=== PATIENT | male | born 1975 | race Caucasian/White ===

== ENCOUNTER 2018-09-20 22:39 | Emergency (ER) | payer BC ==
[2018-09-21] MEDS ORDERED: Tetan/Diph/Pertus SYR(Tdap)* 0.5 ML SYR(BOOSTRIX) use SYR IM ONE (00:31)
[2018-09-21] MEDS ORDERED: Ibuprofen TAB* 600 MG PO ONE (00:31)
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
[2018-09-21 01:30] VITALS: BP 125/79
== END 2018-09-21 01:28 | disposition home or self-care (01) ==
LOC: ED 22:39
DX: S62.316A Displaced fracture of base of fifth metacarpal bone, right hand, initial encounter for closed fracture (principal); S00.31XA Abrasion of nose, initial encounter; S09.93XA Unspecified injury of face, initial encounter; V19.9XXA Pedal cyclist (driver) (passenger) injured in unspecified traffic accident, initial encounter; Z23 Encounter for immunization
CPT/HCPCS: 90471; 90715; 99282; A9270-GY

== ENCOUNTER → 2018-09-28 10:28 | Day surgery (SDC) | payer BC ==
[~2018-09-28 10:28] MED LIST: Buffered Lidocaine 1% SYRIN* 1 ML/SYRINGE INTRADERM ONE; Bupivacaine 0.25% SDV PF* 10 ML VIAL INJ ONE; Dexamethasone IV* 4 MG/ML 1 ML (4 MG) IV SLOW PU ONE; Dexamethasone IV* 4 MG/ML 1 ML (4 MG) ONE; DiMENhydriNATE IV* 50 MG/ML VIAL IV PUSH PRN; Famotidine IV* 10 MG/ML 2 ML (20 mg) IV ONE; Famotidine IV* 10 MG/ML 2 ML (20 mg) ONE; HYDROcodone/ACETAMIN 5-325 MG* 1 TAB PO PRN; Ketorolac INJ* 30 MG/ML 1 ML VIAL IV PRN; Ketorolac INJ* 30 MG/ML 1 ML VIAL ONE; Lactated Ringers 1000 ML Bag* 1,000 ML IV SCH; Lidocaine 2% PF * 5 ML VIAL ONE; Midazolam* 1 MG/ML 5 ML VIAL (5 MG) ONE; Naloxone* 0.4 MG/ML 1 ML VIAL IV PRN; Ondansetron INJ* 2 MG/ML VIAL ONE; Propofol* 10 MG/ML 20 ML BTL ONE; ceFAZolin 2 GM in NS PREMIX(*) 2 GM/100 ML BAG IVPB ONE; fentaNYL* 50 MCG/ML 2 ML VIAL (100 MCG VIAL) IV PRN; fentaNYL* 50 MCG/ML 2 ML VIAL (100 MCG VIAL) ONE; oxyCODONE/Acetamin 5/325 MG* TAB ONE
[2018-09-28] MEDS: oxyCODONE/Acetamin 5/325 MG* TAB PO PRN ×2 (15:47→16:06)
[2018-09-28 16:18] VITALS: BP 123/84
--- NOTE | 2018-09-28 17:01 | PN ---
Progress Note - Progress Note Date of Service: 09/28/18 - Anesthesia Note Note: At the end of the general anesthetic it was noted that there was foreign material noted in the bottom of a 2% Lidocaine PF vial Lot number [id number] Exp date 02/11. The medication in the vial was clear at the time of mixing with propofol for induction of anesthesia and remained clear. Approximately 2ml was mixed with propofol. The material appeared adherent to the inside of the vial or within the glass itself. The material of note was not noticed at the time of mixing of medications. The incident was discussed with Anna Leon of risk management, Dr. Pink, Caterina Wesley, Dr. Avila, Nicole Stanley, Dr. Combs. Attempts to reach Herve Melendez but he was not in the hosptial. Cultures of the vial were taken. There were photos taken of the vial and the vial was being delivered to pharmacy for further evaluation. Attempts to scrape the material from the vial appeared unsuccessful although an indentation was noted in the vial where the material was noted. The patient was awake and alert in the PACU. His vital signs were stable and he was afebrile. T=36.4, 123/84, P=80, R=16.There were not symptoms concerning for infections. A detailed discussion with the patient and mother about the events was done when the patient was fully awake in PACU. It was felt after discussions that the patient would be able to be discharged home if he appeared stable. The symptoms and signs of concern for infection including fever, sweating, chills, rigors, fast heart rate, lightheadedness or any other concerns, he was to proceed directly to ED for evaluation and treatment. All questions were answered and follow up with patient would occur. Mehnaz Larios M.D.
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
--- NOTE | 2018-09-29 16:32 | PN ---
Progress Note - Progress Note Date of Service: 09/29/18 - Anesthesia Note Note: Attempted to contact patient as a follow up but no answer on listed phone number. Message was left on voicemail. Mehnaz Larios M.D.
--- NOTE | 2018-10-02 13:30 | PN ---
Progress Note - Progress Note Date of Service: 10/02/18 - Anesthesia Note Note: I spoke with Mr. Thompson concerning the results of microbiology which was no growth per Herve Melendez. He is feeling well with no concerns at this time. He had no questions. I told him i would followup with him once the vial has been evaluated by the manufacture and a report is received. Mehnaz Larios M.D. .
== END | disposition home or self-care (01) ==
LOC: OR 10:28
PROVIDERS: ATTEND Orthopaedic Surgery Hand Surgery
DX: S62.316A Displaced fracture of base of fifth metacarpal bone, right hand, initial encounter for closed fracture (principal); V19.9XXA Pedal cyclist (driver) (passenger) injured in unspecified traffic accident, initial encounter; Y93.55 Activity, bike riding; Y92.9 Unspecified place or not applicable; E78.2 Mixed hyperlipidemia; F32.9 Major depressive disorder, single episode, unspecified; J45.909 Unspecified asthma, uncomplicated; G47.33 Obstructive sleep apnea (adult) (pediatric)
CPT/HCPCS: 76000; A9270-GY; C1776; J0690; J1100; J1885; J2250; J2405; J2704; J3010; J3490